=== PATIENT | male | born 1985 | race Caucasian/White ===

== ENCOUNTER 2021-11-11 15:25 | Emergency (ER) | payer BC, OTHER ==
[2021-11-11 16:08] VITALS: BP 119/65; PULSE 72; TEMP 98.5; BMI 33.4
[2021-11-11] MEDS ORDERED: DEXAMETHASONE SOD PHOSPHATE 10 MG/1 ML VIAL PO ONE (16:12)
== END 2021-11-11 19:02 | disposition home or self-care (01) ==
LOC: JER 15:25
DX: U07.1 COVID-19 (principal)
CPT/HCPCS: 99283-25; J1100